=== PATIENT | female | born 1960 | race Caucasian/White ===

== ENCOUNTER → 2016-12-02 | Outpatient (CLI) | payer OTHER ==
[~2016-12-02] MED LIST: CETI10CA PO; CETI10TA17 PO; GLUCOSAMINE; HYDR-3583 PO; MULT-608 PO; OMG1KC PO; SCP1.5TD TD
--- NOTE | 2016-12-03 19:28 | Diagnostic Imaging Report ---
Bilateral screening mammogram 2D views with tomosynthesis The current study was also evaluated with a Computer Aided Detection (CAD) system. INDICATION: Screening. No current complaints stated on the questionnaire. COMPARISON: 11/16/2013. FINDINGS: The breasts are composed of heterogeneously dense parenchyma which may decrease mammographic sensitivity. Allowing for technique and positional differences, no suspicious change is seen. IMPRESSION: Dense breasts with no definite change. ACR BI-RADS Category 2: Benign findings. Result letter will be mailed to the patient. Note: At least 10% of breast cancer is not imaged by mammography. Dictated by: Dictated on workstation # [id number]
== END ==
LOC: RAD 14:33
PROVIDERS: ATTEND Nurse Practitioner
DX: Z12.31 Encounter for screening mammogram for malignant neoplasm of breast (principal)
CPT/HCPCS: 77067

== ENCOUNTER → 2016-12-10 | Outpatient (CLI) | payer OTHER ==
--- NOTE | 2016-12-10 09:56 | Diagnostic Imaging Report ---
Examination: DEXA scan. Indication: osteopenia Technique: Bone mineral density estimated based on dual energy radiography over the lumbar spine and femoral necks, was performed. Findings: The lumbar spine T-score is -4.0. This is 2% decreased density measurements compared to 11/16/13. T score in the left femoral neck is -1.1 and on the right side is -1.5. This is 6% decreased density measurements compared to 2014 exam. IMPRESSION: Marked degree of osteoporosis particularly for the patient's age. There is increased risk of fracture. Report was faxed to office of Dr. Oliva by ayaka at 9:59 am. Dictated by: Dictated on workstation # [id number]
== END ==
LOC: RAD 09:15
PROVIDERS: ATTEND Internal Medicine
DX: M81.0 Age-related osteoporosis without current pathological fracture (principal)
CPT/HCPCS: 77080

== ENCOUNTER → 2018-02-28 | Outpatient (CLI) | payer OTHER | LOC: CARD 07:43 | PROVIDERS: ATTEND Internal Medicine Interventional Cardiology | DX: I49.3 Ventricular premature depolarization (principal); R00.1 Bradycardia, unspecified; E78.5 Hyperlipidemia, unspecified; E11.9 Type 2 diabetes mellitus without complications | CPT/HCPCS: 93225; 93226 ==

== ENCOUNTER → 2018-03-17 | Outpatient (CLI) | payer OTHER ==
--- NOTE | 2018-03-17 09:08 | Diagnostic Imaging Report ---
INDICATION: Routine screening. COMPARISON: 12/02/2016 and 11/16/2013. TECHNIQUE: 2D and 3D bilateral screening mammography was performed with CAD. FINDINGS: Both breasts are heterogeneously dense, limiting the sensitivity of mammography. The parenchymal pattern is stable. No mass or malignant appearing microcalcifications are seen. There are benign calcifications on the left. The axillae are unremarkable. IMPRESSION: No mammographic features suspicious for malignancy are identified. ACR BI-RADS Category 2: Benign findings. Result letter will be mailed to the patient. Note: At least 10% of breast cancer is not imaged by mammography. Dictated by: Dictated on workstation # [id number]
== END ==
LOC: RAD 07:41
PROVIDERS: ATTEND Nurse Practitioner
DX: Z12.31 Encounter for screening mammogram for malignant neoplasm of breast (principal)
CPT/HCPCS: 77067

== ENCOUNTER → 2018-03-21 | Outpatient (CLI) | payer OTHER | LOC: CARD 07:37 | PROVIDERS: ATTEND Internal Medicine Interventional Cardiology | DX: I49.3 Ventricular premature depolarization (principal); R00.1 Bradycardia, unspecified; E78.5 Hyperlipidemia, unspecified; E11.9 Type 2 diabetes mellitus without complications | CPT/HCPCS: 93225; 93226 ==

== ENCOUNTER → 2018-03-31 | Outpatient (CLI) | payer OTHER ==
[~2018-03-31] MED LIST changes: +CHOL20002 PO; +GLUC1TAB20 PO; +METF-397 PO; +METO-351 PO; +MULT-178 PO; +PRAV10TA PO; +REGADENOSON 0.4 MG/5 ML SYR (LEXISCAN) IV ONE
[2018-03-31] MEDS: CATHETER FLUSH 10 ML SYR IV PRN ×2 (07:42→08:57)
[2018-03-31 08:55] VITALS: BP 138/73
--- NOTE | 2018-03-31 14:13 | Cardiology Stress Test Report ---
Stress Test Report Type of NM Stress Test: Test Type: LEXISCAN 0.4MG/5ML Date of Procedure/Referring: Date of Procedure: Mar 31, 2018 PCP Eva Caballero MD Admitting Physician Pam Campos MD Indications: Frequent PVCs Baseline Heart Rate: 69 Baseline Blood Pressure: Blood Pressure Systolic: 138 Blood Pressure Diastolic: 73 Baseline EKG: Baseline EKG: sinus rhythm with ventricular bigeminy Summary & Conclusion: Summary: The patient was brought to the stress lab after informed consent was taken. Stress test was performed according to the Lexiscan protocol. 0.4 mg of IV Lexiscan was given. Low-grade exercise was performed. Baseline EKG showed sinus rhythm with ventricular bigeminy at 69 BPM. Initial blood pressure was 133/63 mmHg. Maximum heart rate was 110 bpm and blood pressure 150/82 mmHg. Patient did not have any chest pain, arrhythmias or ST segment changes during the stress test. 10.63 mCi of Myoview were given for rest imaging and 32.1 mCi of Myoview given for stress imaging. Transient ischemic dilatation score 1.02 . Due to ventricular bigeminy gated images could not be done therefore wall motion and ejection fraction could not be evaluated. Small mild reversible apical defect. Conclusion: Pharmacological stress test was negative for ischemia. Ventricular bigeminy. Gated images could not be done due to frequent PVCs. Mild small apical reversible defect. Clinical correlation is recommended. Eva CABALLERO MD Mar 31, 2018 2:13 pm
== END ==
LOC: CARD 07:23
PROVIDERS: ATTEND Internal Medicine Interventional Cardiology
DX: I49.3 Ventricular premature depolarization (principal); R00.1 Bradycardia, unspecified; E11.9 Type 2 diabetes mellitus without complications; E78.5 Hyperlipidemia, unspecified

== ENCOUNTER 2018-04-11 07:12 | Day surgery (SDC) | payer OTHER ==
[~2018-04-11] VITALS: Ht 165.1 cm; Wt 56.7 kg
[2018-04-11] VITALS (8 sets, daily range): BP systolic 98–136; BP diastolic 48–71
[~2018-04-11 07:12] MED LIST changes: -CHOL20002 PO; -GLUC1TAB20 PO; -METF-397 PO; -METO-351 PO; -MULT-178 PO; -PRAV10TA PO; -REGADENOSON 0.4 MG/5 ML SYR (LEXISCAN) IV ONE
[2018-04-11] MEDS ORDERED: NS IV 1000 ML 1,000 ML IV SCH ×2 (07:15→08:57)
[2018-04-11] MEDS ORDERED: METO-351 PO (07:27)
[2018-04-11 07:28] LABS: HEMOGLOBIN 14.5 G/DL (11.5-16.0); MEAN PLATELET VOLUME 9.8 FL (7.4-10.4); RED BLOOD COUNT 4.97 10^6/uL (4.35-5.85); RED CELL DISTRIBUTION WIDTH 13.4 % (10.0-14.5); WHITE BLOOD COUNT 6.1 10^3/uL (4.3-11.0)
[2018-04-11] MEDS ORDERED: CETI10CA PO (07:28)
[2018-04-11] MEDS ORDERED: MULT-178 PO (07:28)
[2018-04-11] MEDS ORDERED: CHOL20002 PO (07:28)
[2018-04-11] MEDS ORDERED: GLUC1TAB20 PO (07:28)
[2018-04-11] MEDS ORDERED: PRAV10TA PO (07:28)
[2018-04-11] MEDS ORDERED: OMG1KC PO (07:28)
[2018-04-11] MEDS ORDERED: METF-397 PO (07:28)
[2018-04-11] MEDS ORDERED: LIDOCAINE 1% INJ 20 ML 20 ML VIAL ONE (07:38)
[2018-04-11] MEDS ORDERED: HEParin (CATH LAB) 2,000 ML IV ONE (07:38)
[2018-04-11] MEDS ORDERED: NS IV 1000 ML 1,000 ML ONE (07:38)
[2018-04-11 07:45] LABS: ALANINE AMINOTRANSFERASE 21 U/L (0-55); ALBUMIN 4.6 GM/DL (3.2-4.5); ALKALINE PHOSPHATASE 71 U/L (40-136); BILIRUBIN,TOTAL 0.6 MG/DL (0.1-1.0); BUN/CREATININE RATIO 22; CALCIUM 9.2 MG/DL (8.5-10.1); CARBON DIOXIDE 26 MMOL/L (21-32); CHLORIDE 107 MMOL/L (98-107); CREATININE SERUM 0.82 MG/DL (0.60-1.30); GFR ESTIMATED > 60; GLUCOSE 83 MG/DL (70-105); SODIUM 142 MMOL/L (135-145)
[2018-04-11] MEDS ORDERED: MIDAZOLAM 5 MG/5 ML (VERSED) VIAL ONE (07:59)
[2018-04-11] MEDS ORDERED: fentaNYL INJECTION 100 MCG/2 ML AMP ONE (07:59)
--- NOTE | 2018-04-11 08:56 | Cardiac Procedure Note-CS/ASA ---
Pre-Procedure Note Pre-Op Procedure Note H&P Reviewed The H&P was reviewed, patient examined and no changes noted. Date H&P Reviewed: Apr 11, 2018 Time H&P Reviewed: 08:30 Conscious Sedation Pre-Proced Time 08:30 ASA Score 3 For ASA 3 and 4: Consider anesthesia and medical clearance. Also, for patients with a history of failed moderate sedation consider anesthesia. Airway Lungs Heart ASA score ASA 1: a normal healthy patient ASA 2: a patient with a mild systemic disease (mid diabetes, controlled hypertension, obesity ASA 3: a patient with a severe systemic disease that limits activity (angina , COPD, prior Myocardial infarction) ASA 4: a patient with an incapacitating disease that is a constant threat to life (CHF, renal failure) ASA 5: a moribund patient not expected to survive 24 hrs. (ruptured aneurysm) ASA 6: a declared brain patient whose organs are being harvested. For emergent operations, add the letter E after the classification Mallampati Classification Grade 1 Sedation Plan Analgesia, Amnesia, Plan communicated to team members, Discussed options with patient/fam, Discussed risks with patient/fam The patient is an appropriate candidate to undergo the planned procedure, sedation, and anesthesia. The patient immediately re-assessed prior to indication. Eva ARCINIEGA MD Apr 11, 2018 08:56
--- NOTE | 2018-04-11 08:57 | Coronary Angiography Report ---
Coronary Angiography Report DATE OF PROCEDURE: 04/11/18 INDICATION: Ventricular bigeminy, abnormal nuclear stress test. PREOPERATIVE DIAGNOSIS: Ventricular bigeminy, abnormal nuclear stress test. POSTOPERATIVE DIAGNOSIS: Very mild CAD. HISTORY: This is a 57-year-old lady who was referred for very frequent PVCs. Monomorphic PVCs in bigeminy pattern. Nuclear stress test showed evidence of apical ischemia. Therefore, the patient was scheduled for coronary angiography. PROCEDURES PERFORMED: 1.Coronary angiography. 2.Left heart catheterization. COMPLICATIONS: None. SPECIMENS: None. ESTIMATED BLOOD LOSS: 10 mL ANESTHESIA: Conscious sedation ANTICOAGULATION: None. CONTRAST: 42 mL. FLUOROSCOPY: 2.36 minutes. FLOUROSCOPY DOSE: 98 mgy. PROCEDURE DETAILS: The patient is a 57 female and was brought to the labeling strategist after informed consent was taken. All the risks and complications were explained in detail; this included the risk of bleeding, vascular damage, stroke , OK and even . The patient was draped and prepped in the usual sterile fashion. Rober's test was abnormal. Access was gained in the right middle artery with a 5 Syriac sheath. Coronary angiography and left heart catheterization was done with a JR4 and JL4 catheter respectively. FINDINGS: 1.Left main: Patent. 2.LAD: Patent. 3.Left circumflex artery: Very mild ostial disease. Stenosis severity 10 percent. 4.RCA: Ostial spasm. Patent. Dominant vessel. 5.Left heart catheterization: LV pressure 113/0 mmHg. LVEDP 7 mmHg. Aortic pressure 108/53 mmHg. Normal LV function with no wall motion abnormalities. No gradient across the aortic valve. CONCLUSIONS: Very mild CAD. Continue secondary prevention measures. Ventricular bigeminy with monomorphic PVCs. Nba Caballero MD, FACP, FACC, [facility] Interventional Cardiology Eva CABALLERO MD Apr 11, 2018 08:57
[2018-04-11] MEDS ORDERED: PATIENT MAY USE OWN MEDS, ALL PO SCH (09:00)
--- NOTE | 2018-04-11 09:10 | Discharge Inst-Post CATH ---
Discharge Inst-CATH Post Cardiac Cath D/C Inst Follow Up/Plan Dr Caballero in two to three weeks. CARDIAC CATH DISCHARGE INSTRUCTIONS *Hold Metformin for 48 hours post heart cath. ACTIVITY * Go Home directly and rest. * Limit activity of the leg (or wrist if it was used) for 7 days including aerobics, swimming, jogging, bicycling, etc. * Restrict stair-climbing for 7 days if possible, if not, climb up with your non -cath leg, then bring together on the same step. * Avoid lifting, pushing, pulling or excessive movement of the affected extremity for 7 days. * Customary sexual activity may be resumed after 2 days-use caution not to use a position that strains or causes pain to the affected extremity. * No driving for 24 hours. * NO SMOKING. * Avoid straining for bowel movements for 7 days. * Gentle walking on level ground is allowed. * Returning to work will depend on the type of procedure and the results. Your doctor will discuss this with you. CALL YOUR DOCTOR FOR ANY OF THE FOLLOWING: *If bleeding from the puncture site occurs- Apply gentle pressure to site with clean cloth and call your doctor or EMS. * If a knot or lump forms under the skin, increases in size, or causes pain. * If bruising appears to be worsening or moving further down your leg instead of disappearing. * Temperature above 101 F. CARE OF YOUR GROIN INCISION; * Bruising or purple discoloration of the skin near the puncture site is common. * You may shower only, no bathtub bathing for 5 days. Be careful to avoid slipping as your leg may feel stiff. * If a closure device was used on your femoral artery, please see the attached guide regarding care of the device and your leg. * Leave the dressing on, until removed by office staff. CARE OF YOUR WRIST INCISION; * Bruising or purple discoloration of the skin near the puncture site is common. * You may shower. * DO NOT submerge wrist. * Leave dressing on, until removed by office staff.. Eva CABALLERO MD Apr 11, 2018 09:10
--- NOTE | 2018-04-11 09:12 | Cardiology Discharge Summary ---
Diagnosis/Chief Complaint Date of Admission 04/11/2018 Date of Discharge 04/11/2018 Admission Diagnosis Ventricular bigeminy, abnormal nuclear stress test. Final/Discharge Diagnosis Very mild CAD. Chief Complaint/HPI Chief Complaint/HPI This is a 57-year-old lady who was referred for very frequent PVCs. Monomorphic PVCs in bigeminy pattern. Nuclear stress test showed evidence of apical ischemia. Therefore, the patient was scheduled for coronary angiography. Discharge Summary Procedures Coronary angiography shows very mild disease in the ostium of the left circumflex artery. Normal LV function. Discharge Physical Examination Normal cardiovascular and respiratory examination. Hospital Course Unremarkable. Pending Labs Laboratory Tests 04/11/18 07:18: White Blood Count 6.1, Red Blood Count 4.97, Hemoglobin 14.5, Hematocrit 44, Mean Corpuscular Volume 89, Mean Corpuscular Hemoglobin 29, Mean Corpuscular Hemoglobin Concent 33, Red Cell Distribution Width 13.4, Platelet Count 219, Mean Platelet Volume 9.8, Prothrombin Time 13.0, INR Comment 1.0, Activated Partial Thromboplast Time 30, Sodium Level 142, Potassium Level 4.0, Chloride Level 107, Carbon Dioxide Level 26, Anion Gap 9, Blood Urea Nitrogen 18, Creatinine 0.82, Estimat Glomerular Filtration Rate > 60, BUN/Creatinine Ratio 22, Glucose Level 83, Calcium Level 9.2, Corrected Calcium , Total Bilirubin 0.6 , Aspartate Amino Transf (AST/SGOT) 27, Alanine Aminotransferase (ALT/SGPT) 21, Alkaline Phosphatase 71, Total Protein 7.0, Albumin 4.6 Discussion & Recommendations Discussion Discharge instructions discussed at length with the patient and family. Follow up appt.: Dr. Caballero in 2-3 weeks. Dicharge Diet: Regular Diet Activity as Tolerated: Yes Home Medications Reviewed patient Home Medication Reconciliation performed by pharmacy medication reconciliations architectural technician and/or nursing. Patients Allergies have been reviewed. Discharge Home Medications: Reviewed and agree with Discharge Medication list on patient's Discharge Instruction sheet Condition at discharge Stable. Instructions to patient/family Dr Caballero in two to three weeks. Eva CABALLERO MD Apr 11, 2018 09:12
== END 2018-04-11 12:30 | disposition home or self-care (01) ==
LOC: CATH 07:12 → SDC 09:25 → CATH 12:30
PROVIDERS: ATTEND Internal Medicine Interventional Cardiology
DX: I25.10 Atherosclerotic heart disease of native coronary artery without angina pectoris (principal); R00.1 Bradycardia, unspecified; E11.9 Type 2 diabetes mellitus without complications; E78.5 Hyperlipidemia, unspecified; Z79.84 Long term (current) use of oral hypoglycemic drugs; Z79.899 Other long term (current) drug therapy
CPT/HCPCS: 36415; 36430; 80053; 85027; 85610; 85730; 87081; 93005; 93458

== ENCOUNTER → 2018-08-09 | Outpatient (CLI) | payer OTHER ==
[~2018-08-09] MED LIST changes: +CHOL20002 PO; +GLUC1TAB20 PO; +METF-397 PO; +METO-351 PO; +MULT-178 PO; +PRAV10TA PO
== END ==
LOC: CARD 11:16
PROVIDERS: ATTEND Internal Medicine Interventional Cardiology
DX: I49.3 Ventricular premature depolarization (principal); E78.5 Hyperlipidemia, unspecified; E11.9 Type 2 diabetes mellitus without complications
CPT/HCPCS: 93225; 93226

== ENCOUNTER 2019-05-08 08:17 | Outpatient (RCR) | payer OTHER | END 2019-08-06 | disposition home or self-care (01) | LOC: CARD 08:17 | PROVIDERS: ATTEND Internal Medicine Interventional Cardiology | DX: I49.3 Ventricular premature depolarization (principal); R00.1 Bradycardia, unspecified ==

== ENCOUNTER → 2019-09-15 | Outpatient (CLI) | payer OTHER | LOC: CARD 07:47 | PROVIDERS: ATTEND Internal Medicine Interventional Cardiology | DX: I49.3 Ventricular premature depolarization (principal); E78.5 Hyperlipidemia, unspecified; E11.9 Type 2 diabetes mellitus without complications | CPT/HCPCS: 93225; 93226 ==

== ENCOUNTER → 2020-07-29 | Outpatient (CLI) | payer OTHER ==
--- NOTE | 2020-07-30 09:39 | Diagnostic Imaging Report ---
EXAMINATION: Digital mammogram INDICATION: Bilateral screening This study was compared to the prior exam of 03/17/2018, 12/02/2016 and 11/16/2013. At this time there are no current complaints. The current study was also evaluated with a Computer Aided Detection (CAD) system. FINDINGS: The fibroglandular tissue in both breasts is heterogeneously dense. This does limit the sensitivity of this exam. Overall, there does not appear to have been any significant change when compared to the prior study. No primary or secondary sign of malignancy is noted. IMPRESSION: There is no radiographic evidence for malignancy. ACR category 1 ACR BI-RADS Category 1: Negative. Result letter will be mailed to the patient. Note: At least 10% of breast cancer is not imaged by mammography. Dictated by: Dictated on workstation # [id number]
== END ==
LOC: RAD 08:00
PROVIDERS: ATTEND Obstetrics & Gynecology
DX: Z12.31 Encounter for screening mammogram for malignant neoplasm of breast (principal)
CPT/HCPCS: 77063; 77067

== ENCOUNTER → 2020-12-23 | Outpatient (CLI) | payer OTHER ==
--- NOTE | 2020-12-23 11:24 | Diagnostic Imaging Report ---
INDICATION: Fall with pain. FINDINGS: Two views of the bilateral forearms reveal the radius and ulna to be intact. No fracture or dislocation of the wrist or elbow joints. IMPRESSION: Unremarkable bilateral two-view forearm. Dictated by: Dictated on workstation # [id number]
--- NOTE | 2020-12-23 11:26 | Diagnostic Imaging Report ---
INDICATION: Wrist pain, pain from fall. COMPARISON: Imaging from the same date. TECHNIQUE: Six radiographs of the bilateral wrists dated 12/23/2020. FINDINGS: Left: Chronic well-corticated ulnar styloid fracture. No acute fracture or dislocation. No destructive osseous process. Mild scattered degenerative changes, greatest involving the 1st CMC joint. Carpal alignment is within normal limits. Scapholunate interval is within normal limits. Right: No acute fracture or dislocation. No destructive osseous process. Carpal alignment is well-maintained. Scapholunate interval is within normal limits. Minimal degenerative changes. No suspicious radiopaque foreign body. IMPRESSION: No acute osseous abnormality with low-grade degenerative changes present. 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 Dictated by: Dictated on workstation # [id number]
== END ==
LOC: RAD 10:33
PROVIDERS: ATTEND Family Medicine
DX: M19.032 Primary osteoarthritis, left wrist (principal); M19.031 Primary osteoarthritis, right wrist; W19.XXXA Unspecified fall, initial encounter

== ENCOUNTER → 2021-05-27 | Outpatient (CLI) | payer OTHER ==
--- NOTE | 2021-05-27 14:57 | Diagnostic Imaging Report ---
Indication: Left hand pain on the thumb side. TIME OF EXAM: 2:32 PM Metacarpals appear to be intact. There may be some mild degenerative changes at the 1st CMC joint. Phalanges are intact. Soft tissues are unremarkable. IMPRESSION: There are some mild degenerative changes at the 1st CMC joint. No acute bony abnormality is detected. Dictated by: Dictated on workstation # [id number]
--- NOTE | 2021-05-27 14:57 | Diagnostic Imaging Report ---
Indication: Continued left-sided wrist pain on the thumb side. TIME OF EXAM: 2:34 PM 3 views left wrist were obtained. Old ulnar styloid fractures again noted. No acute fracture seen. Carpus unremarkable. Visualized metacarpals are intact. IMPRESSION: Chronic changes. No acute bony abnormality is detected. Dictated by: Dictated on workstation # [id number]
== END ==
LOC: ORTHO 13:33
PROVIDERS: ATTEND Orthopaedic Surgery
DX: M18.9 Osteoarthritis of first carpometacarpal joint, unspecified (principal)
CPT/HCPCS: 73110; 73130; G0463; 99202

== ENCOUNTER → 2022-02-03 | Outpatient (CLI) | payer OTHER ==
[~2022-02-03] MED LIST changes: -GLUC1TAB20 PO; +GLUC1TAB21 PO
--- NOTE | 2022-02-03 16:57 | Diagnostic Imaging Report ---
INDICATION: Postmenopausal screening COMPARISON: 12/10/2016 FINDINGS: AP Spine L1-L4: [BMD (g/cm2): 0.757] [T-Score: -3.7] [Z-Score: -2.1] [BMD Previous: 0.724] [BMD % Change: 4.6] LT Hip Neck: [BMD (g/cm2): 0.858] [T-Score: -1.3] [Z-Score: 0.2] LT Hip Total: [BMD (g/cm2):0.829] [T-Score:-1.4] [Z-Score: -0.2] [BMD Previous: 0.869] [BMD % Change: -4.6] RT Hip Neck: [BMD (g/cm2):0.838] [T-Score:-1.4] [Z-Score:0.1] RT Hip Total: [BMD (g/cm2):0.834] [T-score:-1.4] [Z-Score:-0.1] [BMD Previous:0.822] [BMD % Change:1.5] *Indicates significant change from prior examination based on 95% confidence level. World Health Organization criteria for BMD interpretation classify patients as Normal (T-score at or above -1.0), Osteopenic (T-score between -1.0 and -2.5) or Osteoporotic (T-score at or below -2.5). LIMITATIONS AND MODIFICATION: None. FRACTURE RISK (FRAX SCORE): The ten year probability of (%): Major Osteoporotic Fracture: [7.8] Hip Fracture: [0.8] IMPRESSION: 1. Osteoporosis. 2. No significant change in bone mineral density since prior examination. 3. See below National Osteoporosis Foundation guidelines on when to potentially initiate pharmacologic therapy. Based on the National Osteoporosis Foundation Guidelines, pharmacologic treatment should be initiated in any of the following, unless clinical conditions suggest otherwise: * Any patient with prior fragility fracture of the hip or vertebrae. A spine fracture indicates 5X risk for subsequent spine fracture and 2X risk for subsequent hip fracture. * Osteoporosis (T-score <-2.5). * Postmenopausal women and men age 50 and older with low bone mass/osteopenia (T-score between -1.0 and -2.5) by DXA and 10-year major osteoporotic fracture greater than 20% or a 10-year probability of hip fracture greater than 3%. These fracture risks are supplied above in the FRAX score, if applicable. * Clinician judgement and/or patient preferences may indicate treatment for people with 10-year fracture probabilities above or below these levels. Dictated by: Dictated on workstation # [id number]
--- NOTE | 2022-02-03 17:04 | Diagnostic Imaging Report ---
INDICATION: Routine screening. COMPARISON is made with prior mammograms 07/29/2020 and 12/02/2016. 2-D and 3-D bilateral screening mammography was performed with CAD. Both breasts are heterogeneously dense, limiting the sensitivity of mammography. The parenchymal pattern is stable. There are benign calcifications. No mass or malignant-appearing microcalcifications are seen. Axillae are unremarkable. IMPRESSION: BI-RADS Category 2 No mammographic features suspicious for malignancy are identified. ACR BI-RADS Category 2: Benign findings. Result letter will be mailed to the patient. Note: At least 10% of breast cancer is not imaged by mammography. Dictated by: Dictated on workstation # [id number]
== END ==
LOC: RAD 13:34
PROVIDERS: ATTEND Family Medicine
DX: Z12.31 Encounter for screening mammogram for malignant neoplasm of breast (principal); M81.0 Age-related osteoporosis without current pathological fracture; Z78.0 Asymptomatic menopausal state
CPT/HCPCS: 77063; 77067; 77080

== ENCOUNTER → 2023-04-05 | Outpatient (CLI) | payer OTHER ==
--- NOTE | 2023-04-05 15:22 | Diagnostic Imaging Report ---
EXAMINATION: 3D bilateral screening mammogram with CAD. INDICATION: Screening. COMPARISON: This study was compared to the prior exams of 02/03/2022, 07/29/2020, and 03/17/2018. PERSONAL HISTORY: At this time, there are no current complaints. FINDINGS: The breasts are heterogenously dense which may obscure small masses. When compared to the previous study, there does not appear to have been any significant change. There is no primary or secondary sign of malignancy noted. IMPRESSION: There is no evidence for malignancy. ACR BI-RADS Category 1: Negative. Result letter will be mailed to the patient. Note: At least 10% of breast cancer is not imaged by mammography. Dictated by: Dictated on workstation # [id number]
== END ==
LOC: RAD 09:00
PROVIDERS: ATTEND Physician Assistant
DX: Z12.31 Encounter for screening mammogram for malignant neoplasm of breast (principal)
CPT/HCPCS: 77063; 77067